=== PATIENT | male | born 1950 | race Two or more races ===

== ENCOUNTER → 2017-09-19 | Outpatient (CLI) | payer MEDICARE, BC ==
--- NOTE | 2017-09-20 16:00 | MR ---
EXAMINATION TYPE: MR knee LT wo con DATE OF EXAM: 09/19/2017 COMPARISON: NONE HISTORY: Left knee pain and swelling. Prior arthroscopy in 2000. TECHNIQUE: Multiplanar, multisequence imaging of the left knee is performed without IV contrast. FINDINGS: MEDIAL MENISCUS: Anterior and posterior horns are intact without tear. LATERAL MENISCUS: Anterior and posterior horns are intact without tear. Minimal increased signal is s een within the posterior horn of the lateral meniscus without meniscal tear compatible with myxoid de generation. CRUCIATE LIGAMENTS: The anterior and posterior cruciate ligaments are intact and unremarkable. COLLATERAL LIGAMENTS: The medial collateral ligament and lateral collateral ligament complex are inta ct and unremarkable. EXTENSOR MECHANISM: Visualized quadriceps and patellar tendons are intact. EFFUSION: There is a moderate complex joint effusion. Specifically within the anterior patellofemora l joint space extending into the medial and lateral compartments there are numerous rounded and ovoid signal abnormalities. The majority of these are subcentimeter and both T1 and T2 hyperintense compat ible with either synovial osteochondromatosis or pigmented villous nodular synovitis. However, the la rger of these is of mixed signal measuring approximately 2.2 x 1.4 cm and appears to have some chondr oid component although is not entirely T1 hypointense suggesting intra-articular extra synovial osteo chondroma. Given the multiplicity these are likely benign. POPLITEAL CYST: No popliteal/wood cyst. CARTILAGE: There is mild signal heterogeneity of the patellofemoral cartilage with lateral facet thin chantelle and no focal cortical defect with 1 mm focal cortical defect of the medial facet. Signal heterog eneity without focal cortical defect is seen of the lateral compartment. Medial compartment cartilage appears maintained. BONE MARROW SIGNAL: There is a focal area of bone marrow edema within the medial patellar facet. Cart ilage deep to this appears unremarkable. There is also thickening of the medial patellar retinaculum although it appears intact. Additionally PD hyperintense and T1 hypointense osseous contusion is also seen of the posterior medial femoral condyle. Superficial cartilage appears intact at this location. Remaining bone marrow signal is unremarkable. IMPRESSION: 1. 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 The largest of these is complex in signal favoring intra-articular extra synovial osteochondroma. 2. Focal area of bone marrow edema within the medial facet and retinacular thickening relating to low -grade partial tear. No patellar subluxation or retinacular detachment. 3. Additional area of bone marrow edema within the medial femoral condyle likely relating to osseous contusion is a superficial cartilage appears intact. 4. Mild to moderate tricompartmental chondrosis. 5. Myxoid degeneration of the posterior horn of the lateral meniscus. No meniscal tear.
== END | disposition home or self-care (01) ==
LOC: RADMRIMAIN 13:34
PROVIDERS: ATTEND Orthopaedic Surgery
DX: M23.352 Other meniscus derangements, posterior horn of lateral meniscus, left knee (principal); M25.462 Effusion, left knee; R60.0 Localized edema

== ENCOUNTER → 2018-02-05 | Outpatient (CLI) | payer MEDICARE, BC ==
--- NOTE | 2018-02-05 13:50 | XR ---
EXAMINATION TYPE: XR chest 2V DATE OF EXAM: 02/05/2018 COMPARISON: 11/19/2014 HISTORY: Shortness of breath TECHNIQUE: Frontal and lateral views of the chest are obtained. FINDINGS: Scattered senescent parenchymal changes noted. No evidence for infiltrate. No evidence for atelectasis. Heart size is stable. Mediastinal structures are stable and grossly unremarkable. No evidence for hilar prominence. Degenerative changes dorsal spine. IMPRESSION: 1. No evidence for acute pulmonary disease.
== END | disposition home or self-care (01) ==
LOC: RADXRMAIN 13:35
PROVIDERS: ATTEND Internal Medicine
DX: R05 Cough (principal)
CPT/HCPCS: 71046

== ENCOUNTER → 2018-06-19 | Outpatient (CLI) | payer MEDICARE, BC ==
--- NOTE | 2018-06-20 07:42 | XR ---
Lumbar spine HISTORY: Trauma and pain 3 views of the lumbar spine Correlation to prior thoracic spine 06/19/2018 There is multilevel spondylosis. Lumbar vertebral bodies show preserved height and alignment. Mild lo ss of bone mineralization suspected. Sclerosis present in the posterior elements of the lower lumbar spine. Disc heights are maintained. IMPRESSION: No acute fracture or subluxation. Consider MRI for additional evaluation, persistent symp toms.
--- NOTE | 2018-06-20 07:44 | XR ---
Thoracic spine HISTORY: Trauma and pain 3 views of the thoracic spine Flowing anterior osteophytes present along the anterior thoracic spine with relative preservation of disc heights suggest diffuse idiopathic skeletal hyperostosis. Thoracic vertebral bodies show preserv ed height and alignment. Mild spinal curvature noted. IMPRESSION: No acute fracture or subluxation.
== END | disposition home or self-care (01) ==
LOC: RADXRMAIN 16:23
PROVIDERS: ATTEND Internal Medicine
DX: M54.5 Low back pain (principal)
CPT/HCPCS: 72072; 72100

== ENCOUNTER → 2018-07-24 | Outpatient (CLI) | payer MEDICARE, BC ==
--- NOTE | 2018-07-24 17:58 | US ---
EXAMINATION TYPE: US kidneys/renal and bladder DATE OF EXAM: 07/24/2018 COMPARISON: US dated 10/24/2012, CT chest 11/19/2014 CLINICAL HISTORY: R10.9 Right flank pain x 2 weeks; Microscopic hematuria per patient EXAM MEASUREMENTS: Right Kidney: 11.5 x 5.8 x 4.6 cm Left Kidney: 11.5 x 5.9 x 5.6 cm Post Void Residual Volume: 18.9 mL Right Kidney: double collecting system is noted Left Kidney: superior pole cortical cyst = 3.2 x 3.1 x 3.6cm is limitedly noted due to rib interfere nce, but is seen on multiple views Bladder: wnl Bilateral Jets seen: yes Normal Post Void Residual: yes There is no evidence for hydronephrosis at this point in time. No nephrolithiasis is seen. Cortical medullary differentiation is maintained. The urinary bladder is anechoic. Bilateral ureteral jets ar e seen. IMPRESSION: Upper pole cortical cyst is not well seen left kidney due to position.
== END ==
LOC: RADUSWWP 13:23
PROVIDERS: ATTEND Internal Medicine
DX: N28.1 Cyst of kidney, acquired (principal); R10.9 Unspecified abdominal pain
CPT/HCPCS: 76770

== ENCOUNTER 2018-10-27 12:50 | Emergency (ER) | payer MEDICARE, BC ==
[2018-10-27 13:00] VITALS: BP 190/66; PULSE 76; RESP 20; TEMP 98.1
[2018-10-27] MEDS ORDERED: ACET/COD 300 MG/30 MG STARTER PACK 6 TAB BTL PO STA (14:40)
[2018-10-27] MEDS ORDERED: IBUPROFEN 800 MG TAB PO STA (14:40)
[2018-10-27] MEDS ORDERED: Acetaminophen-Codeine 300-30mg TAB PO STA (14:40)
--- NOTE | 2018-10-27 14:42 | ED ---
Extremity Problem HPI - General Chief complaint: Extremity Problem,Nontraumatic Stated complaint: Left Shoulder/Arm Pain moving into neck Time Seen by Provider: 10/27/18 13:43 Source: patient, RN notes reviewed, old records reviewed Mode of arrival: ambulatory Limitations: no limitations - History of Present Illness Initial comments: This is a 67-year-old male who is presenting to the ER today for evaluation of left arm left shoulder pain. Patient denies any significant acute injury. He states 3 days ago he had symptoms of planar left shoulder and then noticed that started a ball around his elbow joint. Mainly in the biceps area he does feel some weakness in strength in that arm. No other injuries no other trauma no other complaints. MD Complaint: extremity pain (Left upper) -: days(s) (3) Location: left, upper extremity History of Same: No Radiation: none Severity scale (1-10): 3 Quality: aching Consistency: constant Improves with: immobilization Worsens with: exertion, palpation Associated Symptoms: denies other symptoms - Related Data Home Medications Medication Instructions Recorded Confirmed Insulin Glargine [Lantus] 25 units SQ HS 11/19/14 10/27/18 Aspirin [Adult Low Dose Aspirin EC] 81 mg PO DAILY 10/27/18 10/27/18 Losartan Potassium 100 mg PO DAILY 10/27/18 10/27/18 glipiZIDE [Glucotrol] 10 mg PO TID 10/27/18 10/27/18 metFORMIN HCL 500 mg PO BID 10/27/18 10/27/18 Previous Rx's Medication Instructions Recorded Rosuvastatin [Crestor] 20 mg PO DAILY #30 tablet 11/19/14 Naproxen [Naprosyn] 375 mg PO Q12HR #30 tablet 10/27/18 Allergies Allergy/AdvReac Type Severity Reaction Status Date / Time Penicillins Allergy Rash/Hives Verified 10/27/18 14:15 Review of Systems ROS Statement: Those systems with pertinent positive or pertinent negative responses have been documented in the HPI. ROS Other: All systems not noted in ROS Statement are negative. Past Medical History Past Medical History: Diabetes Mellitus, Hyperlipidemia History of Any Multi-Drug Resistant Organisms: None Reported Past Surgical History: Ear Surgery, Heart Catheterization Additional Past Surgical History / Comment(s): stress test Past Anesthesia/Blood Transfusion Reactions: No Reported Reaction Past Psychological History: Depression, No Psychological Hx Reported Smoking Status: Current every day smoker Past Alcohol Use History: Occasional Past Drug Use History: Unable to Obtain - Past Family History Father Family Medical History: Coronary Artery Disease (CAD), Dementia Mother Family Medical History: Coronary Artery Disease (CAD), Diabetes Mellitus General Exam - General Exam Comments Initial Comments: She does have deformity left upper arm, does appear to have Complete biceps tendon rupture Limitations: no limitations General appearance: alert, in no apparent distress Head exam: Present: atraumatic, normocephalic, normal inspection Eye exam: Present: normal appearance, PERRL, EOMI. Absent: scleral icterus, conjunctival injection, periorbital swelling ENT exam: Present: normal exam, mucous membranes moist Neck exam: Present: normal inspection. Absent: tenderness, meningismus, lymphadenopathy Respiratory exam: Present: normal lung sounds bilaterally. Absent: respiratory distress, wheezes, rales, rhonchi, stridor Cardiovascular Exam: Present: regular rate, normal rhythm, normal heart sounds. Absent: systolic murmur, diastolic murmur, rubs, gallop, clicks GI/Abdominal exam: Present: soft, normal bowel sounds. Absent: distended, tenderness, guarding, rebound, rigid Extremities exam: Present: normal inspection, full ROM, normal capillary refill. Absent: tenderness, pedal edema, joint swelling, calf tenderness Back exam: Present: normal inspection Neurological exam: Present: alert, oriented X3, CN II-XII intact Psychiatric exam: Present: normal affect, normal mood Skin exam: Present: warm, dry, intact, normal color. Absent: rash Course Vital Signs 10/27/18 12:57 Temperature 98.1 F Pulse Rate 76 Respiratory 20 Rate Blood Pressure 190/66 O2 Sat by Pulse 98 Oximetry Medical Decision Making - Medical Decision Making 67 male the ER for evaluation presents today for evaluation regards to left shoulder pain, positive left biceps tendon rupture on exam. Patient will follow -up with orthopedics as directed - Radiology Data Radiology results: report reviewed (X-ray left shoulder is negative for acute disease), image reviewed Disposition Clinical Impression: Rupture of left biceps tendon Disposition: HOME SELF-CARE Condition: Good Instructions: Repairs of the Biceps and Triceps Tendons (DC), Tendon Rupture ( ED), Biceps Tenodesis (DC) Prescriptions: Naproxen [Naprosyn] 375 mg PO Q12HR #30 tablet Is patient prescribed a controlled substance at d/c from ED?: No Referrals: Miguel Dietz DO [Doctor of Osteopathic Medicine] - 1-2 days
--- NOTE | 2018-10-27 15:11 | XR ---
EXAMINATION TYPE: XR shoulder complete LT DATE OF EXAM: 10/27/2018 COMPARISON: NONE HISTORY: Shoulder pain TECHNIQUE: 3 views FINDINGS: I see no fracture nor dislocation. Glenohumeral joint is intact. There are no pathologic ca lcifications. IMPRESSION: Negative left shoulder exam. No fracture seen.
== END 2018-10-27 15:15 | disposition home or self-care (01) ==
LOC: EC 12:50
DX: M66.812 Spontaneous rupture of other tendons, left shoulder (principal); E11.9 Type 2 diabetes mellitus without complications; F17.200 Nicotine dependence, unspecified, uncomplicated; Z95.818 Presence of other cardiac implants and grafts; Z79.4 Long term (current) use of insulin; Z79.82 Long term (current) use of aspirin; Z79.899 Other long term (current) drug therapy; Z88.0 Allergy status to penicillin
CPT/HCPCS: 99284

== ENCOUNTER → 2018-11-15 | Outpatient (CLI) | payer MEDICARE, BC ==
--- NOTE | 2018-11-15 08:19 | MR ---
EXAMINATION TYPE: MR shoulder LT wo con DATE OF EXAM: 11/15/2018 COMPARISON: Left shoulder x-ray October 27, 2018 HISTORY: Pain in left shoulder per order TECHNIQUE: Multiplanar, multisequence imaging of the left shoulder is performed without contrast. FINDINGS: Rotator Cuff: There is marked increased signal of the distal supraspinatus tendon, there is bursal mendiola rface tear measuring 10 mm transversely paracoronal image 11. Tear involves anterior one half fibers. Infraspinatus tendon remains intact. There is moderate to severe focal bursal fluid extending latera lly and anteriorly noted. Acromioclavicular Joint: Moderate to severe narrowing is seen. There is type II downsloping acromion noted. Glenohumeral Joint: Moderate narrowing and glenohumeral joint effusion is seen. No significant spurri ng is present. Labrum: The superior labrum is blunted with abnormal signal, degenerative tear is felt present. Biceps Tendon: The long head of biceps is not distinctly identified in bicipital groove, external rot ation is present. Bone marrow signal: Subchondral cystic change in the humeral head is identified. Other: No additional significant abnormality is appreciated. IMPRESSION: There is moderate AC and glenohumeral joint arthropathy. Type II downsloping acromion wit h suggestion of underlying impingement. There is bursal surface tear of the anterior portion of supra spinatus tendon.
== END | disposition home or self-care (01) ==
LOC: RADMRIMAIN 06:07
PROVIDERS: ATTEND Orthopaedic Surgery
DX: M75.102 Unspecified rotator cuff tear or rupture of left shoulder, not specified as traumatic (principal); M19.012 Primary osteoarthritis, left shoulder

== ENCOUNTER 2018-11-21 06:43 | Day surgery (SDC) | payer MEDICARE, BC ==
[2018-11-19 08:51] VITALS: BMI 28.6
[~2018-11-21 06:43] MED LIST: LACTATED RINGERS 1,000 ML IV SCH
[2018-11-21 07:19] VITALS: RESP 16; TEMP 96.5
[2018-11-21 07:22] LABS: Glucose,Whole Blood 124 mg/dL (75-99)
[2018-11-21] MEDS ORDERED: PROPOFOL 10 MG/ML 20 ML VIAL IV ONE (07:30)
--- NOTE | 2018-11-21 07:57 | P.PCN ---
Date of Procedure: 11/21/18 Procedure(s) Performed: BRIEF HISTORY: Patient is a 67-year-old pleasant male, scheduled for an elective colonoscopy as a part of variation of prior history of colon polyps. His last colonoscopy was 5 years ago. PROCEDURE PERFORMED: Colonoscopy. PREOPERATIVE DIAGNOSIS: History of colon polyps. IV sedation per Anesthesia. PROCEDURE: After informed consent was obtained, the patient, was brought into the endoscopy unit. IV sedation was administered by Anesthesia under continuous monitoring. Digital rectal examination was normal. Initially the Olympus CF- 160 flexible video colonoscope was then inserted in the rectum, gradually advanced into the cecum without any difficulty. Careful examination was performed as the scope was gradually being withdrawn. Ileocecal valve and the appendiceal orifice were visualized and appeared normal. Prep was excellent. Mucosa of the cecum, ascending colon, transverse colon, descending colon, sigmoid colon, and rectum appeared normal. Retroflexion was performed in the rectum and grade 2 internal hemorrhoids were seen. The patient tolerated the procedure well. IMPRESSION: Normal-appearing colon from rectum to cecum with no evidence of colorectal neoplasia. Grade 2 internal hemorrhoids. RECOMMENDATIONS: Findings of this examination were discussed with the patient as well as his family. He was advised to have a repeat surveillance colonoscopy in 5 years from now because of the prior history of polyps.
[2018-11-21 08:26] VITALS: BP 144/72; PULSE 51
== END 2018-11-21 09:02 | disposition home or self-care (01) ==
LOC: ORWHC2ENDO 06:43
PROVIDERS: ATTEND Internal Medicine Gastroenterology
DX: Z12.11 Encounter for screening for malignant neoplasm of colon (principal); K64.1 Second degree hemorrhoids; E11.9 Type 2 diabetes mellitus without complications; E78.5 Hyperlipidemia, unspecified; Z86.010 Personal history of colon polyps; Z88.0 Allergy status to penicillin; Z79.82 Long term (current) use of aspirin; Z79.84 Long term (current) use of oral hypoglycemic drugs; Z79.899 Other long term (current) drug therapy
CPT/HCPCS: J2704; G0105; 45378

== ENCOUNTER 2018-12-19 06:28 | Day surgery (SDC) | payer MEDICARE, BC ==
[2018-12-17 08:43] VITALS: BMI 28.8
--- NOTE | 2018-12-18 14:28 | HP ---
HISTORY AND PHYSICAL DATE OF SERVICE: 12/19/2018 Miah Alcala is a 68-year-old patient seen with progressive left shoulder pain. Treatment options were discussed with him. He elected to proceed with arthroscopy. Consent was obtained, clearance was provided by Dr. Mcdaniels. PAST MEDICAL HISTORY: Hypertension, insulin-dependent diabetes. PAST SURGICAL HISTORY: Noncontributory. MEDICATIONS: 1. Aspirin. 2. Lantus insulin. 3. Glucotrol. 4. Lisinopril. ALLERGIES: PENICILLIN. SOCIAL HISTORY: Noncontributory. PHYSICAL EVALUATION OF THE LEFT SHOULDER: Flexion is 140 degrees, abduction is 130 degrees, external rotation is 30 degrees with weakness, tenderness along the anterolateral acromion rotator cuff insertion site. Impingement sign is positive at 90 degrees. Distal neurovascular exam is intact. RADIOGRAPHS OF THE LEFT SHOULDER: Revealed a type 2 anterior acromion, acromioclavicular joint osteoarthritis and cystic changes of the greater tuberosity of the left shoulder. MRI revealed a rotator cuff tear, impingement, and acromioclavicular joint osteoarthritis. IMPRESSION: 1. Left shoulder impingement with rotator cuff tear. 2. Left shoulder acromioclavicular osteoarthritis. 3. Hypertension. 4. Insulin-dependent diabetes. PLAN: Left shoulder arthroscopy with decompression, possible rotator cuff repair, Sujit and debridement. MMODL / IJN: [id number] /
[~2018-12-19 06:28] MED LIST changes: +DEXAMETHASONE SOD PHOSPHATE 10 MG/ML 1 ML VIAL IV ONE; -LACTATED RINGERS 1,000 ML IV SCH; +LIDOCAINE 1% 20 ML VIAL (10MG/ML) FOR IV START INTRADERMA PRN; +MIDAZOLAM (PF) 2 MG/2 ML VIAL IV PRN; +fentaNYL (PF) 50 MCG/ML 2 ML AMP IV PRN
[2018-12-19 07:04] VITALS: TEMP 97
[2018-12-19] MEDS: LACTATED RINGERS 1,000 ML IV SCH ×3 (07:12→12:40)
[2018-12-19 07:24] LABS: Glucose,Whole Blood 97 mg/dL (75-99)
[2018-12-19] MEDS: ceFAZolin IN SWFI 2 GM/20 ML SYRINGE IVP ONE ×2 (07:49→08:20)
[2018-12-19] MEDS ORDERED: NEOSTIGMINE 1 MG/ML 10 ML VIAL ONE (07:55)
[2018-12-19] MEDS ORDERED: TRANEXAMIC ACID 1,000 MG/10 ML VIAL ONE (07:55)
[2018-12-19] MEDS ORDERED: SUCCINYLCHOLINE CHLORIDE 100 MG/5 ML SYR IV ONE ×2 (07:55)
[2018-12-19] MEDS ORDERED: GLYCOPYRROLATE 0.2 MG/ML 2 ML VIAL ONE (07:55)
[2018-12-19] MEDS ORDERED: ROCURONIUM BROMIDE 10 MG/ML 10 ML VIAL IV ONE (07:55)
[2018-12-19] MEDS ORDERED: PROPOFOL 10 MG/ML 20 ML VIAL IV ONE (07:55)
[2018-12-19] MEDS ORDERED: LIDOCAINE 1% INJ 10MG/ML (20 ML MDV) ONE (07:55)
[2018-12-19] MEDS ORDERED: SODIUM CHLORIDE 0.9% 100 ML BAG ONE (07:55)
[2018-12-19] MEDS ORDERED: MIDAZOLAM 2 MG/2 ML VIAL ONE (07:55)
--- NOTE | 2018-12-19 09:59 | P.OP ---
Date of Procedure: 12/19/18 Preoperative Diagnosis: Left shoulder impingement Postoperative Diagnosis: 1. Left shoulder rotator cuff tear 2. Left shoulder impingement 3. Left shoulder acromioclavicular joint osteoarthritis Procedure(s) Performed: 1. Left shoulder arthroscopic rotator cuff repair 2. Left shoulder arthroscopic subacromial decompression 3. Left shoulder arthroscopic Sujit procedure Implants: 44.75 Arthrex swivel lock anchors Anesthesia: GETA, regional (Interscalene block) Surgeon: Miguel Dietz Student Ambassador #1: Chuy Roth Estimated Blood Loss (ml): 10 Pathology: none sent Condition: stable Disposition: PACU Indications for Procedure: 68-year-old patient seen with progressive left shoulder pain. After having treatment options discussed, he elected to proceed with arthroscopy. Operative Findings: see description of procedure Description of Procedure: Patient underwent an interscalene block by department of anesthesia. The patient was then taken to the operative suite. The patient underwent a general anesthetic by the department of anesthesia. The patient was placed into a lateral position and secured. There was appropriate padding of the bony prominence. Left shoulder was then prepped and draped in normal sterile orthopedic fashion. We placed the extremity in 10 pounds of longitudinal traction. A posterior incision was now made for a posterior working portal site. The trocar and cannula were inserted into the glenohumeral joint. Arthroscopy was initiated. Spinal needle was now inserted anteriorly, to ascertain the anterior working portal site. An incision was now made in that area, a trocar was inserted followed by a probe. There was no obvious long head biceps tendon tear with remnant stump intra-articular. There was some mild fraying of the anterior labrum. There were grade 1 chondromalacia changes of the glenoid. There was an obvious large rotator cuff tear that was visualized from the glenohumeral side. I debrided the remnant biceps stump. I debrided that superficial labral tear. The residual labrum appeared stable. Instruments now removed from the glenohumeral joint. Utilizing the posterior working portal site, the trocar and cannula were inserted into the subacromial space. Arthroscopy initiated. I made an incision 2 fingerbreadths lateral to the acromion. I introduced my trocar followed by my ArthroCare ablator. I now began ablating thick subacromial bursal tissue, which exposed the undersurface of the anterior acromion. There was diminished subacromial space. There was a very prominent anterior acromion. A motorized bur was introduced and a subacromial decompression was performed. I also excised some osteophytes off the inferior aspect of the distal clavicle. The AC joint was visualized and noted to be fairly arthritic. The motorized bur was introduced in the anterior portal site and a Sujit procedure was performed without difficulty, decompressing the AC joint nicely. I turned my attention to the rotator cuff. There was a 2.5 cm rotator cuff tear. I debrided the margins getting down to stable tendon tissue. I introduced my motorized bur and abraded the footprint area, getting some petechial bleeding. I now made an accessory portal site off the lateral aspect of the acromion. I punched to holes medial for medial row fixation with the assistance of Jovani HAMILTON carefully tapping the punch with a mallet as I held the punch and the camera. I now introduced both anchors into the pre-punched holes and Jovani HAMILTON tapped them with the mallet as I held anchors and the camera. Jovani HAMILTON now screwed the anchors in place a while I held the anchor guide and camera. All 8 limbs of suture were now passed through good bites of rotator cuff tendon. I now punched 2 holes for lateral row fixation again I held the punch and camera while Jovani HAMILTON used a mallet to tap in the punch. We now passed sutures through both anchors and individually I introduced the anchors into the pre-punch holes I held the anchor guide in position with one hand holding the camera with the other hand while Jovani HAMILTON tensioned the sutures and screwed in the anchors one at a time. All residual suture limbs were now clipped. We had good compression of the tendon along the entire footprint. I injected 1 mL Renue intra-articular. Instruments now removed from the portal sites. All portal sites were approximated with nylon suture. Sterile dressings were applied followed by a shoulder immobilizer. Chuy HAMILTON assisted in this complex case. The patient was awakened, transferred to a bed, and taken to recovery in stable condition.
[2018-12-19 12:14] VITALS: BP 130/77; PULSE 50; RESP 16
--- NOTE | 2018-12-26 15:21 | CDI ---
Date: 12/26/18 CDS/Account Director Name: Argentina Lopez Phone: If any questions, call Vilma Bergman Assembly Line Driver at [phone] Patient Name: Miah Alcala Admit Date: 12/19/18 Discharge Date: 12/19/18 ATTENTION: The [facility] Coding Staff appreciate your assistance in clarifying documentation. Please respond to the clarification below the line at the bottom and electronically sign. The [facility] Coding staff will review the response and follow-up if needed. Please note: Queries are made part of the Legal Health Record. If you have any questions, please contact the Assembly Line Driver. Dear Dr. Dietz, Please provide clarification as to why the interscalene block was performed. Please clarify if this was given for postoperative pain or if it was part of the anesthesia for operative purposes. Thank you for your kind consideration. MTDD
--- NOTE | 2018-12-31 10:01 | CDI ---
Date: 12/31/18 CDS/Heel Seat Fitter Name: Argentina Lopez Phone: If any questions, call Vilma Bergman Field Technical Assistant at [phone] Patient Name: Miah Alcala Admit Date: 12/19/18 Discharge Date: 12/19/18 ATTENTION: The [facility] Coding Staff appreciate your assistance in clarifying documentation. Please respond to the clarification below the line at the bottom and electronically sign. The [facility] Coding staff will review the response and follow-up if needed. Please note: Queries are made part of the Legal Health Record. If you have any questions, please contact the Field Technical Assistant. Dear Dr. Dietz, Please provide clarification as to why the interscalene block was performed. Please clarify if this was given for postoperative pain management or if it was part of the operative anesthesia. Thank you for your kind consideration. postoperative pain control _ MTDD
== END 2018-12-19 12:41 | disposition home or self-care (01) ==
LOC: OR 06:28
PROVIDERS: ATTEND Orthopaedic Surgery
DX: M75.102 Unspecified rotator cuff tear or rupture of left shoulder, not specified as traumatic (principal); M75.42 Impingement syndrome of left shoulder; M19.012 Primary osteoarthritis, left shoulder; M94.212 Chondromalacia, left shoulder; I10 Essential (primary) hypertension; E11.9 Type 2 diabetes mellitus without complications; F17.200 Nicotine dependence, unspecified, uncomplicated; Z79.1 Long term (current) use of non-steroidal anti-inflammatories (NSAID); Z79.82 Long term (current) use of aspirin; Z79.4 Long term (current) use of insulin; Z79.899 Other long term (current) drug therapy; Z88.0 Allergy status to penicillin
CPT/HCPCS: 29826; 29827; 29824; 64415; C1713 ×2; C1894; C1765; J2250 ×2; J1100; J2710; J2001; J3010; J0330; J2704; J0690

== ENCOUNTER → 2020-05-22 | Outpatient (CLI) | payer MEDICARE, BC ==
--- NOTE | 2020-05-22 09:42 | US ---
EXAMINATION TYPE: US kidneys/renal and bladder DATE OF EXAM: 05/22/2020 COMPARISON: NONE CLINICAL HISTORY: 69-year-old male R10.9 FLANK PAIN. TECHNIQUE: Multiple sonographic images of the kidneys and bladder are obtained. FINDINGS: EXAM MEASUREMENTS: Right Kidney: 11.0 x 4.8 x 4.5 cm Left Kidney: 11.6 x 5.6 x 5.7 cm with a 5.4 cm upper pole cyst. No hydronephrosis in either side. Bladder: Partial distention limits its evaluation. Bilateral Jets seen: no IMPRESSION: No hydronephrosis. 5.4 cm left upper pole renal cyst.
== END | disposition home or self-care (01) ==
LOC: RADUSWWP 06:53
PROVIDERS: ATTEND Internal Medicine
DX: N28.1 Cyst of kidney, acquired (principal)
CPT/HCPCS: 76770

== ENCOUNTER 2021-03-31 03:23 | Emergency (ER) | payer MEDICARE, BC ==
[2021-03-31 03:41] VITALS: BP 163/75; PULSE 66; RESP 19; TEMP 97.4
[2021-03-31] MEDS ORDERED: HYDROmorphone 1 MG/ML 1 ML SYRINGE IM STA (03:51)
[2021-03-31] MEDS ORDERED: diazePAM 5 MG TAB PO STA (03:51)
[2021-03-31] MEDS ORDERED: IBUPROFEN 800 MG TAB PO STA (03:51)
--- NOTE | 2021-03-31 03:54 | ED ---
Extremity Problem HPI - General Chief complaint: Extremity Problem,Nontraumatic Stated complaint: Foot Pain Time Seen by Provider: 03/31/21 03:24 Source: patient Mode of arrival: ambulatory - Related Data Home Medications Medication Instructions Recorded Confirmed Insulin Glargine [Lantus] 25 units SQ HS 11/19/14 12/19/18 Aspirin [Adult Low Dose Aspirin EC] 81 mg PO Q48H 10/27/18 12/19/18 Losartan Potassium 100 mg PO DAILY 10/27/18 12/19/18 glipiZIDE [Glucotrol] 10 mg PO DAILY 10/27/18 12/19/18 metFORMIN HCL 500 mg PO BID 10/27/18 12/19/18 Ibuprofen [Motrin] 600 mg PO Q8HR PRN 12/17/18 12/19/18 Previous Rx's Medication Instructions Recorded Rosuvastatin [Crestor] 20 mg PO DAILY #30 tablet 11/19/14 Hydrocodone/Acetaminophen [[place] 1 each PO Q6HR PRN #28 tab 12/19/18 5-325] Allergies Allergy/AdvReac Type Severity Reaction Status Date / Time Penicillins Allergy Rash/Hives Verified 03/31/21 03:41 Review of Systems ROS Statement: Those systems with pertinent positive or pertinent negative responses have been documented in the HPI. ROS Other: All systems not noted in ROS Statement are negative. Past Medical History Past Medical History: Diabetes Mellitus, Hyperlipidemia Additional Past Medical History / Comment(s): STATES LOSARTAN TAKEN FOR KIDNEY PROTECTION., CONSTIPATION. History of Any Multi-Drug Resistant Organisms: None Reported Past Surgical History: Ear Surgery, Heart Catheterization Additional Past Surgical History / Comment(s): stress test Past Anesthesia/Blood Transfusion Reactions: No Reported Reaction Past Psychological History: No Psychological Hx Reported Smoking Status: Current every day smoker Past Alcohol Use History: Occasional Past Drug Use History: None Reported - Past Family History Sister(s) Family Medical History: Cancer Additional Family Medical History / Comment(s): BREAST CANCER. BRAIN TUMOR Father Family Medical History: Coronary Artery Disease (CAD), Dementia Mother Family Medical History: Coronary Artery Disease (CAD), Diabetes Mellitus Course Vital Signs 03/31/21 03:34 Temperature 97.4 F L Pulse Rate 66 Respiratory 19 Rate Blood Pressure 163/75 O2 Sat by Pulse 99 Oximetry Disposition Clinical Impression: Right knee pain Disposition: HOME SELF-CARE Condition: Good Instructions (If sedation given, give patient instructions): Knee Pain (ED) Is patient prescribed a controlled substance at d/c from ED?: No Referrals: Elliott Mcdaniels MD [Primary Care Provider] - 1-2 days Miguel Dietz DO [Doctor of Osteopathic Medicine] - 1-2 days
--- NOTE | 2021-03-31 04:32 | XR ---
EXAM: XR Right Knee, 3 Views CLINICAL HISTORY: ITS.REASON XR Reason: pain TECHNIQUE: Three views of the right knee. COMPARISON: No relevant prior studies available. FINDINGS: Bones/joints: No acute fracture or traumatic malalignment. Mild degenerative changes. Tiny joint effusion. Soft tissues: Unremarkable. Vasculature: Vascular calcifications. IMPRESSION: No acute fracture or traumatic malalignment.
[2021-03-31] MEDS ORDERED: ACET/COD 300 MG/30 MG STARTER PACK 6 TAB BTL PO STA (05:19)
[2021-03-31] MEDS ORDERED: IBUPROFEN 600 MG STARTER PACK 4 TAB BTL PO STA (05:20)
== END 2021-03-31 06:49 | disposition home or self-care (01) ==
LOC: EC 03:23
DX: M25.561 Pain in right knee (principal); M79.673 Pain in unspecified foot; E11.9 Type 2 diabetes mellitus without complications; F17.200 Nicotine dependence, unspecified, uncomplicated; E78.5 Hyperlipidemia, unspecified; Z79.4 Long term (current) use of insulin; Z79.82 Long term (current) use of aspirin; Z88.0 Allergy status to penicillin
CPT/HCPCS: 96372; 99283

== ENCOUNTER → 2021-04-06 | Outpatient (CLI) | payer MEDICARE, BC ==
--- NOTE | 2021-04-06 17:03 | MR ---
EXAMINATION TYPE: MR knee RT wo con DATE OF EXAM: 04/06/2021 COMPARISON: Radiograph 6-21 HISTORY: 70-year-old male Right knee pain x 4 days. No known injury TECHNIQUE: Multiplanar, multisequence imaging of the right knee is performed without IV contrast. FINDINGS: There is some increased signal along the intact ACL fibers, possible mild mucoid degeneration. ACL and LCL complex are intact. Mild thickening of the proximal to mid MCL suggesting sequela of remote sprain. Fibers are intact. Some degenerative signal involving the body of the medial meniscus. No definite meniscal tear. Extensive degenerative signal, possible early horizontal cleavage tear involving the body of the late ral meniscus. Mild focal cartilage thinning along the mid central aspect of the medial femoral condyle. Minimal sup erficial cartilage irregularity along the mid weightbearing aspect of the lateral femoral condyle. Mi ld diffuse thinning of articular cartilage without any high-grade chondral lesion within either media l or lateral compartment. However, there is more severe cartilage loss involving the medial patellar facet and moderate to obi re irregular loss along the mid patella with reactive degenerative subchondral signal changes. Extensor mechanism is intact. Nonspecific anterior soft tissue swelling. Mild edema within the suprap atellar fat pad. Small to moderate knee joint effusion. Some generalized soft tissue swelling is note d. Mild edema within the lateral gastrocnemius musculature. No Doran's cyst. Normal popliteal artery anatomy and muscle bulk. No suspicious bone marrow replacement. Small foci of red marrow hyperplasia are present. IMPRESSION: 1. Prominent degenerative signal, possible early horizontal cleavage tear involving the body of the l ateral meniscus. Lesser degree of degenerative signal in the body of the medial meniscus. 2. Moderate to severe irregular cartilage loss along the mid patella and medial patellar facet with s ome reactive subchondral signal changes. Lateral patellar facet and trochlear articular cartilage is uniformly thinned but otherwise maintained. 3. Some edema within the suprapatellar fat pad may be seen in the setting of fat pad impingement synd orion. Clinically correlate. Anterior soft tissue swelling with a small knee joint effusion. 4. Some mild generalized soft tissue swelling. Edema within the lateral gastrocnemius could be reacti ve to altered biomechanics or could reflect a mild muscle strain.
== END | disposition home or self-care (01) ==
LOC: RADMRIMAIN 14:05
PROVIDERS: ATTEND Orthopaedic Surgery
DX: M25.861 Other specified joint disorders, right knee (principal); M24.151 Other articular cartilage disorders, right hip; R60.0 Localized edema

== ENCOUNTER 2021-06-17 08:06 | Day surgery (SDC) | payer MEDICARE, BC ==
[2021-06-14 15:13] VITALS: BMI 28.0
--- NOTE | 2021-06-16 21:14 | HP ---
HISTORY AND PHYSICAL REASON FOR ADMISSION: Surgery scheduled for 06/17/2021 HISTORY OF PRESENT ILLNESS: Miah Alcala is a 70-year-old gentleman seen with progressive right knee pain. We discussed options for treatment. He elected to proceed with arthroscopy. Consent was obtained. PAST MEDICAL HISTORY: Hypertension, hyperlipidemia, [id number] diabetes. PAST SURGICAL HISTORY: Left shoulder arthroscopy. MEDICATIONS: Glipizide, losartan, metformin. ALLERGIES: PENICILLIN. SOCIAL HISTORY: Denies tobacco use. PHYSICAL EXAMINATION: Evaluation of the right knee: Range of motion zero to 130. Mild effusion. Tenderness along the medial lateral joint lines. Positive medial Edmund's. Positive lateral Edmund's. Ligaments stable. Hip rotation without pain. Distal neurovascular exam is intact. RADIOGRAPHS: Right knee radiographs revealed mild osteoarthritis. MRI right knee revealed lateral meniscal tear, osteoarthritis, intra-articular effusion. IMPRESSION: 1. Internal derangement of right knee with meniscal tear. 2. Hypertension. 3. Hyperlipidemia. 4. Sne-ennnuiq-mseegikkm diabetes. PLAN: Right knee arthroscopy with partial lateral meniscectomy and debridement. Surgery scheduled for 06/17/2021. MMODL / IJN: [id number] /
[~2021-06-17 08:06] MED LIST changes: -DEXAMETHASONE SOD PHOSPHATE 10 MG/ML 1 ML VIAL IV ONE; +DEXAMETHASONE SOD PHOSPHATE 4 MG/ML 1 ML VIAL IV ONE; +LACTATED RINGERS 1,000 ML IV SCH; -LIDOCAINE 1% 20 ML VIAL (10MG/ML) FOR IV START INTRADERMA PRN; -MIDAZOLAM (PF) 2 MG/2 ML VIAL IV PRN; +MIDAZOLAM 2 MG/2 ML VIAL IV PRN; +ONDANSETRON 4 MG/2 ML VIAL IVP ONE; -fentaNYL (PF) 50 MCG/ML 2 ML AMP IV PRN
[2021-06-17 08:35] VITALS: TEMP 96.8
[2021-06-17 08:44] LABS: Glucose,Whole Blood 89 mg/dL (75-99)
[2021-06-17] MEDS ORDERED: LIDOCAINE 1% (10MG/ML) FOR IV START INTRADERMA ONE (08:44)
[2021-06-17] MEDS ORDERED: LIDOCAINE 1% INJ 10MG/ML (20 ML MDV) ONE (09:48)
[2021-06-17] MEDS ORDERED: SUCCINYLCHOLINE CHLORIDE 100 MG/5 ML SYR IV ONE (09:48)
[2021-06-17] MEDS ORDERED: fentaNYL (PF) 50 MCG/ML 2 ML AMP ONE (09:48)
[2021-06-17] MEDS ORDERED: PROPOFOL 10 MG/ML 20 ML VIAL IV ONE (09:48)
[2021-06-17] MEDS ORDERED: MIDAZOLAM 2 MG/2 ML VIAL ONE (09:48)
[2021-06-17] MEDS ORDERED: BUPIVACAINE (PF) 0.25% 30 ML VIAL SQ ONE (10:17)
--- NOTE | 2021-06-17 10:37 | P.OP ---
Date of Procedure: 06/17/21 Preoperative Diagnosis: Internal derangement right knee Postoperative Diagnosis: 1. Tear medial meniscus right knee 2. Grade 2 chondromalacia medial femoral condyle right knee 3. Reactive synovitis medial, lateral and suprapatellar compartments right knee Procedure(s) Performed: 1. Arthroscopic partial medial meniscectomy right knee 2. Arthroscopic chondroplasty medial femoral condyle right knee 3. Arthroscopic partial synovectomy medial, lateral and suprapatellar compartments right knee Anesthesia: SASKIAA, local Surgeon: Miguel Dietz Estimated Blood Loss (ml): 7 Pathology: none sent Condition: stable Disposition: PACU Indications for Procedure: 70-year-old gentleman seen with progressive right knee pain. After having treatment options discussed, he elected to proceed with arthroscopy. Operative Findings: See description of procedure Description of Procedure: Patient was taken to the operative suite. Patient underwent a general anesthetic by the department of anesthesia. Patient was given preoperative antibiotics. The right lower extremity was placed in a well-padded arthroscopic leg banks. The right leg was prepped and draped in the normal sterile orthopedic fashion. A lateral parapatellar and suprapatellar incision was made. Trochars were inserted. Arthroscopy was initiated. Suprapatellar pouch revealed diffuse thick reactive synovitis. The patellofemoral joint appeared to articulate congruently. There was grade 1 chondromalacia of the patellofemoral joint with no obvious osteochondral tears present. The scope was guided into the medial gutter. No loose bodies or plica were identified. The scope was then guided into the medial compartment. A medial parapatellar incision was made. Trocar inserted followed by probe. There was a radial tear posterior horn medial meniscus. There were grade 2 chondromalacia changes of the medial femoral condyle on its weightbearing surface with some osteochondral flap tears. There was some thick reactive synovitis anteriorly. I performed a partial medial meniscectomy getting down to stable meniscal tissue. I performed a chondroplasty of the medial femoral condyle getting down to stable osteochondral tissue. I performed a partial synovectomy compressing the thick reactive synovitis. The residual meniscus was stable. The residual osteochondral surface was stable. There was good decompression of the synovitis. Scope and p robe were then guided into the intercondylar notch. Cruciates were identified, probed and found to be stable. The scope and probe were then guided into lateral compartment. Lateral meniscus revealed some mild fraying along the anterior horn. The residual meniscus was stable. There was no significant chondromalacia. There was some thick reactive synovitis anteriorly. I introduced a motorized shaver and debrided out the area of superficial fraying anterior horn lateral meniscus. I performed a partial synovectomy decompressing the thick reactive synovitis. The shaver was removed. There was good decompression of the synovitis. The scope was in guided back into the suprapatellar compartment. I introduced a motorized shaver into the super patellar compartment. I debrided some piecemeal fragments of meniscus that I encountered. I performed a partial synovectomy. Shaver was removed. There was good decompression of the synovitis. Instruments were now removed from the joint. The joint was infiltrated with .25% Marcaine. Steri-Strips were applied to the portal sites. Sterile dressings were applied. The patient was placed into a SONIA hose. No tourniquet was utilized. The patient was awakened, transferred to a bed and taken to recovery stable satisfactory condition.
[2021-06-17] MEDS: HYDROmorphone 0.5 MG/0.5 ML SYRINGE IVP PRN ×2 (10:46→10:56)
[2021-06-17 10:53] LABS: Glucose,Whole Blood 96 mg/dL (75-99)
[2021-06-17 11:20] VITALS: RESP 16
[2021-06-17] MEDS ORDERED: HYDROcodone/APAP 5-325MG 1 EACH TAB ONE (11:26)
[2021-06-17] MEDS ORDERED: HYDROcodone/APAP 5-325MG 1 EACH TAB PO ONE (11:28)
[2021-06-17 11:58] VITALS: BP 156/76; PULSE 65
== END 2021-06-17 12:27 | disposition home or self-care (01) ==
LOC: OR 08:06
PROVIDERS: ATTEND Orthopaedic Surgery
DX: S83.241A Other tear of medial meniscus, current injury, right knee, initial encounter (principal); M94.261 Chondromalacia, right knee; M65.9 Synovitis and tenosynovitis, unspecified; E11.9 Type 2 diabetes mellitus without complications; I10 Essential (primary) hypertension; E78.5 Hyperlipidemia, unspecified; Z79.899 Other long term (current) drug therapy; Z88.0 Allergy status to penicillin
CPT/HCPCS: 29881; 29876; J2250; J1100; J0690; J2405; J2001; J3010; J0330; J2704; J1170

== ENCOUNTER → 2021-06-29 | Outpatient (CLI) | payer MEDICARE, BC ==
--- NOTE | 2021-06-29 14:57 | US ---
EXAMINATION TYPE: US venous doppler duplex LE RT DATE OF EXAM: 06/29/2021 2:37 PM COMPARISON: NONE CLINICAL HISTORY: M79.661 PAIN RT LOWER LIMB,R22.41 SWELLING RT LOWER LIMB. SIDE PERFORMED: Right TECHNIQUE: The lower extremity deep venous system is examined utilizing real time linear array sonog mehdi with graded compression, doppler sonography and color-flow sonography. VESSELS IMAGED: Common Femoral Vein Deep Femoral Vein Greater Saphenous Vein * Femoral Vein Popliteal Vein Small Saphenous Vein * Proximal Calf Veins (* superficial vessels) Right Leg: Negative for DVT IMPRESSION: 1. Right lower extremity ultrasound negative for deep venous thrombosis.
== END | disposition home or self-care (01) ==
LOC: RADUSWWP 14:08
PROVIDERS: ATTEND Orthopaedic Surgery
DX: M79.661 Pain in right lower leg (principal); R22.41 Localized swelling, mass and lump, right lower limb

== ENCOUNTER 2021-07-22 23:32 | Emergency (ER) | payer MEDICARE, BC ==
[2021-07-22 23:41] VITALS: TEMP 98.1
[2021-07-23] MEDS ORDERED: MECLIZINE 12.5 MG TAB PO STA (00:24)
[2021-07-23 00:56] LABS: Basophils % (A) 0 %; Eosinophils # (A) 0.2 k/uL (0-0.7); Eosinophils % (A) 3 %; HCT 41.1 % (39.0-53.0); HGB 13.5 gm/dL (13.0-17.5); Lymphocytes # (A) 2.4 k/uL (1.0-4.8); Lymphocytes % (A) 28 %; MCH 30.8 pg (25.0-35.0); MCHC 32.9 g/dL (31.0-37.0); MCV 93.5 fL (80.0-100.0); Mean Platelet Volume 12.1; Monocytes # (A) 0.4 k/uL (0-1.0); Monocytes % (A) 5 %; Neutrophils # (A) 5.3 k/uL (1.3-7.7); Neutrophils % (A) 62 %; Platelet Count 124 k/uL (150-450); RBC 4.39 m/uL (4.30-5.90); RDW 13.1 % (11.5-15.5); WBC 8.5 k/uL (3.8-10.6)
[2021-07-23 01:05] LABS: Appearance,Urine Clear (Clear); Bilirubin,Urine Negative (Negative); Blood,Urine Negative (Negative); Color,Urine Light Yellow; Glucose,Urine (UA) Negative (Negative); Ketones,Urine Negative (Negative); Leukocyte Esterase,Urine Negative (Negative); Nitrite,Urine Negative (Negative); PH, Urine 6.5 (5.0-8.0); Protein,Urine Negative (Negative); Specific Gravity,Urine 1.014 (1.001-1.035); Urobilinogen,Urine <2.0 mg/dL (<2.0)
[2021-07-23 01:19] LABS: ALT 22 U/L (4-49); AST 22 U/L (17-59); African American GFR (CKD) >90 (>60 ml/min/1.73 sqM); Albumin 4.1 g/dL (3.5-5.0); Alkaline Phosphatase 63 U/L (38-126); Anion Gap 7 mmol/L; Blood Urea Nitrogen 17 mg/dL (9-20); Calcium 9.4 mg/dL (8.4-10.2); Carbon Dioxide 27 mmol/L (22-30); Chloride 103 mmol/L (98-107); Glucose 174 mg/dL (74-99); Non-African American GFR(CKD) 88 (>60 ml/min/1.73 sqM); Sodium 137 mmol/L (137-145); Total Bilirubin 0.4 mg/dL (0.2-1.3); Total Protein 6.7 g/dL (6.3-8.2)
--- NOTE | 2021-07-23 01:23 | ED ---
Dizziness HPI - General Chief Complaint: Dizziness Stated Complaint: Dizziness Time Seen by Provider: 07/23/21 00:02 Source: patient Mode of arrival: ambulatory Limitations: no limitations - History of Present Illness Initial Comments: 70-year-old male presents to emergency Department with chief complaint of dizziness. Patient reports this occurred about 3 hours prior to arrival while he was doing his usual treadmill walk in the basement. Patient reports he felt sudden weakness all over his body and then he felt disoriented. However, he denies any lightheadedness or loss of consciousness. States this is still ongoing but it comes and goes. States it is mostly resolved at this point. States the room was slightly spinning around him. Denies prior history of vertigo. Denies any visual changes, difficulty with speech, one-sided weakness or paresthesias. Patient is a smoker. He is also diabetic with history of dyslipidemia. Denies any chest pain shortness of breath. - Related Data Home Medications Medication Instructions Recorded Confirmed Insulin Glargine [Lantus Vial] 25 units SQ HS 11/19/14 06/17/21 Aspirin [Adult Low Dose Aspirin EC] 81 mg PO Q48H 10/27/18 06/17/21 Losartan Potassium 100 mg PO DAILY 10/27/18 06/17/21 metFORMIN HCL 500 mg PO BID 10/27/18 06/17/21 Insulin Lispro [humaLOG Kwikpen] 0 unit SQ DIRECTED 06/14/21 06/17/21 Previous Rx's Medication Instructions Recorded Rosuvastatin [Crestor] 20 mg PO DAILY #30 tablet 11/19/14 HYDROcodone/APAP 5-325MG [[place] 1 tab PO Q6HR PRN 3 Days #15 tab 06/17/21 5-325] Meclizine [Antivert] 25 mg PO TID PRN #15 tab 07/23/21 Allergies Allergy/AdvReac Type Severity Reaction Status Date / Time Penicillins Allergy Rash/Hives Verified 07/22/21 23:41 Review of Systems ROS Statement: Those systems with pertinent positive or pertinent negative responses have been documented in the HPI. ROS Other: All systems not noted in ROS Statement are negative. Past Medical History Past Medical History: Diabetes Mellitus, Hyperlipidemia Additional Past Medical History / Comment(s): STATES LOSARTAN TAKEN FOR KIDNEY PROTECTION History of Any Multi-Drug Resistant Organisms: None Reported Past Surgical History: Ear Surgery, Heart Catheterization Additional Past Surgical History / Comment(s): stress test Past Anesthesia/Blood Transfusion Reactions: No Reported Reaction Past Psychological History: No Psychological Hx Reported Smoking Status: Current every day smoker Past Alcohol Use History: Occasional Past Drug Use History: None Reported - Past Family History Sister(s) Family Medical History: Cancer Additional Family Medical History / Comment(s): BREAST CANCER. BRAIN TUMOR Father Family Medical History: Coronary Artery Disease (CAD), Dementia Mother Family Medical History: Coronary Artery Disease (CAD), Diabetes Mellitus General Exam Limitations: no limitations General appearance: alert, in no apparent distress Head exam: Present: atraumatic, normocephalic, normal inspection Eye exam: Present: normal appearance, PERRL, EOMI Pupils: Present: normal accommodation ENT exam: Present: normal exam, normal oropharynx, mucous membranes moist, TM's normal bilaterally, normal external ear exam Neck exam: Present: normal inspection, full ROM. Absent: tenderness, lymphadenopathy Respiratory exam: Present: normal lung sounds bilaterally. Absent: respiratory distress, wheezes, rales, rhonchi, stridor, chest wall tenderness, accessory muscle use Cardiovascular Exam: Present: regular rate, normal rhythm, normal heart sounds. Absent: systolic murmur, diastolic murmur GI/Abdominal exam: Present: soft. Absent: distended, guarding, rebound, rigid Extremities exam: Present: normal inspection, full ROM, normal capillary refill, other (Palpable DP and PT bilaterally) Back exam: Present: normal inspection, full ROM Neurological exam: Present: alert, oriented X3, CN II-XII intact, normal gait Expanded Patient oriented to: Present: person, place, time Speech: Present: fluid speech Cranial nerves: EOM's Intact: Normal, Gag Reflex: Normal, Tongue Deviation: Normal, Nystagmus: Normal, Facial Sensation: Normal Cerebellar function: Finger to Nose: Normal Upper motor neuron: Pronator Drift: Normal Sensory exam: Upper Extremity Light Touch: Normal, Lower Extremity Light Touch: Normal Motor strength exam: RUE: 5, LUE: 5, RLE: 5, LLE: 5 Psychiatric exam: Present: normal affect, normal mood Skin exam: Present: warm, dry, intact, normal color Course Vital Signs 07/22/21 07/23/21 07/23/21 23:35 00:33 02:50 Temperature 98.1 F Pulse Rate 65 59 L 54 L Respiratory 20 20 18 Rate Blood Pressure 190/68 171/75 145/61 O2 Sat by Pulse 100 98 99 Oximetry EKG Findings - EKG Comments: EKG Findings:: Sinus rhythm, inverted T-wave in lead 3. Ventricular rate 63, [place] 156, QRS 82, QTC 390. Medical Decision Making - Medical Decision Making 70-year-old male presents to emergency Department with chief complaint of dizziness. On physical examination, patient had a positive [place]-Hallpike. He did not have any focal neural deficits. No difficulty with speech or unilateral symptoms. CT of the brain shows no acute findings aside from cerebral atrophy. Laboratory work is unremarkable. Patient was given Antivert. He was then reevaluated and was able to walk without any difficulty. He reports significant proven in his gait. He did not report any weakness at this time. I did offer the option of observation to the hospital, he declined. Patient reports he would like to follow up with his primary care physician and outpatient basis. I will send Antivert to the pharmacy. Return parameters were discussed with gigi huff his attending and agreeable. Case discussed with physician. - Lab Data Result diagrams: 07/23/21 00:37 07/23/21 00:37 Lab Results 07/23/21 07/23/21 07/23/21 Range/Units 00:37 00:37 00:37 WBC 8.5 (3.8-10.6) k/uL RBC 4.39 (4.30-5.90) m/uL Hgb 13.5 (13.0-17.5) gm/dL Hct 41.1 (39.0-53.0) % MCV 93.5 (80.0-100.0) fL MCH 30.8 (25.0-35.0) pg MCHC 32.9 (31.0-37.0) g/dL RDW 13.1 (11.5-15.5) % Plt Count 124 L (150-450) k/uL MPV 12.1 Neutrophils % 62 % Lymphocytes % 28 % Monocytes % 5 % Eosinophils % 3 % Basophils % 0 % Neutrophils # 5.3 (1.3-7.7) k/uL Lymphocytes # 2.4 (1.0-4.8) k/uL Monocytes # 0.4 (0-1.0) k/uL Eosinophils # 0.2 (0-0.7) k/uL Basophils # 0.0 (0-0.2) k/uL Sodium 137 (137-145) mmol/L Potassium 4.0 (3.5-5.1) mmol/L Chloride 103 (98-107) mmol/L Carbon Dioxide 27 (22-30) mmol/L Anion Gap 7 mmol/L BUN 17 (9-20) mg/dL Creatinine 0.83 (0.66-1.25) mg/dL Est GFR (CKD-EPI)AfAm >90 (>60 ml/min/1.73 sqM) Est GFR (CKD-EPI)NonAf 88 (>60 ml/min/1.73 sqM) Glucose 174 H (74-99) mg/dL Calcium 9.4 (8.4-10.2) mg/dL Total Bilirubin 0.4 (0.2-1.3) mg/dL AST 22 (17-59) U/L ALT 22 (4-49) U/L Alkaline Phosphatase 63 (38-126) U/L Troponin I (0.000-0.034) ng/mL Total Protein 6.7 (6.3-8.2) g/dL Albumin 4.1 (3.5-5.0) g/dL Urine Color Light Yellow Urine Appearance Clear (Clear) Urine pH 6.5 (5.0-8.0) Ur Specific [place] 1.014 (1.001-1.035) Urine Protein Negative (Negative) Urine Glucose (UA) Negative (Negative) Urine Ketones Negative (Negative) Urine Blood Negative (Negative) Urine Nitrite Negative (Negative) Urine Bilirubin Negative (Negative) Urine Urobilinogen <2.0 (<2.0) mg/dL Ur Leukocyte Esterase Negative (Negative) 07/23/21 Range/Units 00:37 WBC (3.8-10.6) k/uL RBC (4.30-5.90) m/uL Hgb (13.0-17.5) gm/dL Hct (39.0-53.0) % MCV (80.0-100.0) fL MCH (25.0-35.0) pg MCHC (31.0-37.0) g/dL RDW (11.5-15.5) % Plt Count (150-450) k/uL MPV Neutrophils % % Lymphocytes % % Monocytes % % Eosinophils % % Basophils % % Neutrophils # (1.3-7.7) k/uL Lymphocytes # (1.0-4.8) k/uL Monocytes # (0-1.0) k/uL Eosinophils # (0-0.7) k/uL Basophils # (0-0.2) k/uL Sodium (137-145) mmol/L Potassium (3.5-5.1) mmol/L Chloride (98-107) mmol/L Carbon Dioxide (22-30) mmol/L Anion Gap mmol/L BUN (9-20) mg/dL Creatinine (0.66-1.25) mg/dL Est GFR (CKD-EPI)AfAm (>60 ml/min/1.73 sqM) Est GFR (CKD-EPI)NonAf (>60 ml/min/1.73 sqM) Glucose (74-99) mg/dL Calcium (8.4-10.2) mg/dL Total Bilirubin (0.2-1.3) mg/dL AST (17-59) U/L ALT (4-49) U/L Alkaline Phosphatase (38-126) U/L Troponin I <0.012 (0.000-0.034) ng/mL Total Protein (6.3-8.2) g/dL Albumin (3.5-5.0) g/dL Urine Color Urine Appearance (Clear) Urine pH (5.0-8.0) Ur Specific [place] (1.001-1.035) Urine Protein (Negative) Urine Glucose (UA) (Negative) Urine Ketones (Negative) Urine Blood (Negative) Urine Nitrite (Negative) Urine Bilirubin (Negative) Urine Urobilinogen (<2.0) mg/dL Ur Leukocyte Esterase (Negative) Disposition Clinical Impression: Dizziness Disposition: HOME SELF-CARE Condition: Stable Instructions (If sedation given, give patient instructions): Dizziness (ED) Additional Instructions: Please return to the Emergency Department if symptoms worsen or any other concerns. Prescriptions: Meclizine [Antivert] 25 mg PO TID PRN #15 tab PRN Reason: Vertigo Is patient prescribed a controlled substance at d/c from ED?: No Referrals: Elliott Mcdaniels MD [Primary Care Provider] - 1-2 days Time of Disposition: 02:35
--- NOTE | 2021-07-23 01:50 | CT ---
EXAMINATION TYPE: CT brain wo con DATE OF EXAM: 07/23/2021 COMPARISON: None HISTORY: DIZZY CT DLP: 1178.4 mGycm Automated exposure control for dose reduction was used. There is some cerebral cortical atrophy. There is no mass effect nor midline shift. There is no sign of intracranial hemorrhage. Calvarium is intact. Skull base is intact. There is incomplete pneumatiza tion of the right mastoid sinus. There is previous surgery right mastoid sinus. IMPRESSION: Cerebral atrophy. No acute intracranial abnormality.
[2021-07-23 02:56] VITALS: BP 145/61; PULSE 54; RESP 18
== END 2021-07-23 02:56 | disposition home or self-care (01) ==
LOC: EC 23:32
DX: R42 Dizziness and giddiness (principal); E11.9 Type 2 diabetes mellitus without complications; E78.5 Hyperlipidemia, unspecified; F17.200 Nicotine dependence, unspecified, uncomplicated; Z79.4 Long term (current) use of insulin; Z79.82 Long term (current) use of aspirin; Z88.0 Allergy status to penicillin
CPT/HCPCS: 36415; 70450; 80053; 81003; 84484; 85025; 93005; 99285

== ENCOUNTER → 2022-01-20 | Outpatient (CLI) | payer MEDICARE, BC ==
--- NOTE | 2022-01-20 11:10 | US ---
EXAMINATION TYPE: US kidneys/renal and bladder DATE OF EXAM: 01/20/2022 COMPARISON: CLINICAL HISTORY: R31.9 HEMATURIA, UNSPECIFIED. Macroscopic hematuria EXAM MEASUREMENTS: Right Kidney: 10.6 x 4.3 x 5.1 cm Left Kidney: 11.4 x 4.9 x 5.7 cm Limited due to overlying bowel gas Right Kidney: No hydronephrosis or masses seen Left Kidney: Limited visualization. Upper pole simple cystic lesion = 5.8 x 4.3 x 6.1 cm . Echogenic foci measuring 0.8 cm within the mid left kidney could be a nonshadowing nonobstructing gee al stone Bladder: mildly distended, anechoic Bilateral Jets not seen IMPRESSION: 1. Superior pole left renal cyst. 2. There may be a nonobstructing nonshadowing renal stone in the mid left kidney
== END | disposition home or self-care (01) ==
LOC: RADUSWWP 08:49
PROVIDERS: ATTEND Internal Medicine
DX: N28.1 Cyst of kidney, acquired (principal)
CPT/HCPCS: 76770

== ENCOUNTER → 2022-02-10 | Outpatient (CLI) | payer MEDICARE, BC ==
--- NOTE | 2022-02-11 06:13 | XR ---
EXAMINATION TYPE: XR chest 2V DATE OF EXAM: 02/10/2022 COMPARISON: 02/05/2018 HISTORY: 71-year-old male R05.9 TECHNIQUE: Frontal and lateral views FINDINGS: Heart upper limits of normal in size. Aorta and pulmonary vasculature within normal limits. Mild inte rstitial prominence is a chronic appearance. Mild hyperinflation may relate to depth of inspiration. Stable 6 mm nodular density particularly at the right apex could represent a bone island of the right posterior third rib versus a calcified granuloma, unchanged from prior. No consolidation or pleural effusion. [facility] in the mid thoracic spine. IMPRESSION: Hyperinflation may relate to depth of inspiration or underlying emphysema. There are chronic changes without acute cardiopulmonary process.
== END | disposition home or self-care (01) ==
LOC: RADXRMAIN 12:11
PROVIDERS: ATTEND Internal Medicine
DX: J98.4 Other disorders of lung (principal)
CPT/HCPCS: 71046

== ENCOUNTER → 2022-06-07 | Outpatient (CLI) | payer MEDICARE, BC ==
--- NOTE | 2022-06-07 14:07 | MR ---
EXAMINATION TYPE: MR knee LT wo con DATE OF EXAM: 06/07/2022 COMPARISON: 09/19/2017 HISTORY: Pain in left knee TECHNIQUE: Multiplanar, multisequence imaging of the left knee is performed without IV contrast. FINDINGS: MEDIAL MENISCUS: Anterior and posterior horns are intact without tear. LATERAL MENISCUS: Anterior and posterior horns are intact without tear. Degeneration posterior horn lateral meniscus. CRUCIATE LIGAMENTS: The anterior and posterior cruciate ligaments are intact and unremarkable. COLLATERAL LIGAMENTS: The medial collateral ligament and lateral collateral ligament complex are inta ct and unremarkable. EXTENSOR MECHANISM: Visualized quadriceps and patellar tendons are intact. EFFUSION: Joint effusion smaller in size and is less complex than on prior examination. POPLITEAL CYST: No popliteal/wood cyst. TRICOMPARTMENT SPACES: Narrowing of the patellofemoral joint space with early changes of chondromalac ia patella. CARTILAGE: There is cartilaginous thinning along the anterior femoral condyles. Subchondral increased signal anterior femoral intercondylar region. BONE MARROW SIGNAL: No focal abnormal marrow signal is appreciated. OTHER: Posterior to Hoffa's fat pad are multiple low signal T1 and T2 weighted foci are noted. The l argest more complex appearing lesion seen previously is not evident at this time. Consider synovial o steochondromatosis or pigmented villous nodular synovitis. IMPRESSION: 1.Posterior to Hoffa's fat pad are multiple low signal T1 and T2 weighted foci are noted. The largest more complex appearing lesion seen previously is not evident at this time. Consider synovial osteoch ondromatosis or pigmented villous nodular synovitis. 2. Changes of osteoarthritis.
== END | disposition home or self-care (01) ==
LOC: RADMRIMAIN 10:46
PROVIDERS: ATTEND Orthopaedic Surgery
DX: M17.12 Unilateral primary osteoarthritis, left knee (principal)

== ENCOUNTER 2022-07-28 14:25 | Day surgery (SDC) | payer MEDICARE, BC ==
--- NOTE | 2022-07-28 05:09 | HP ---
HISTORY AND PHYSICAL DATE OF SURGERY: 07/28/2022. Miah Alcala is a 71-year-old patient seen with progressive left knee pain. We discussed options for treatment. He elected to proceed with left knee arthroscopy. Consent was obtained. Medical clearance was provided by Dr. Singh. PAST MEDICAL HISTORY: Hypertension, hyperlipidemia, lyf-ywoofak-wpditetop diabetes. PAST SURGICAL HISTORY: Shoulder arthroscopy, knee arthroscopy. DAILY MEDICATIONS: 1. Glipizide. 2. Losartan. 3. Metformin. 4. Rosuvastatin. ALLERGIES: Penicillin. SOCIAL HISTORY: Denies current tobacco use. PHYSICAL EVALUATION OF THE LEFT KNEE: Range of motion is 0 to 130. Mild effusion. Tenderness, medial and lateral joint lines. Positive medial Edmund's. Ligaments stable. Hip rotation without pain. Distal neurovascular exam is intact. RADIOGRAPHS: Radiographs of the left knee revealed moderate osteoarthritic changes. MRI of left knee revealed degeneration in lateral meniscus. IMPRESSION: 1. Internal derangement of left knee with lateral meniscal tear and synovitis. 2. Hypertension. 3. Hyperlipidemia. 4. Drc-xxicsto-ujazatgzb diabetes. PLAN: Left knee arthroscopy with partial lateral meniscectomy and debridement. MMODL / IJN: [id number] /
[~2022-07-28 14:25] MED LIST changes: +HYDROmorphone 0.5 MG/0.5 ML SYRINGE IVP PRN; +LIDOCAINE 1% (10MG/ML) FOR IV START INTRADERMA PRN; -MIDAZOLAM 2 MG/2 ML VIAL IV PRN; +ONDANSETRON 4 MG/2 ML VIAL IVP PRN
[2022-07-28 15:23] VITALS: RESP 16
[2022-07-28 15:33] LABS: Glucose,Whole Blood 73 mg/dL (70-110)
[2022-07-28] MEDS ORDERED: DEXTROSE 50% SYRINGE 50 ML IVP ONE (15:45)
[2022-07-28 16:26] LABS: Glucose,Whole Blood 109 mg/dL (70-110)
[2022-07-28] MEDS ORDERED: PROPOFOL 10 MG/ML 20 ML VIAL IV ONE (16:31)
[2022-07-28] MEDS ORDERED: fentaNYL (PF) 50 MCG/ML 2 ML AMP ONE (16:31)
[2022-07-28] MEDS ORDERED: KETOROLAC 15 MG/ML 1 ML VIAL ONE (16:31)
[2022-07-28] MEDS ORDERED: MIDAZOLAM 2 MG/2 ML VIAL ONE (16:31)
[2022-07-28] MEDS ORDERED: LIDOCAINE 2% INJ 20 MG/ML (2 ML VIAL) ONE (16:31)
[2022-07-28] MEDS ORDERED: BUPIVACAINE (PF) 0.25% 30 ML VIAL INTRAARTIC ONE (16:56)
--- NOTE | 2022-07-28 17:15 | P.OP ---
Date of Procedure: 07/28/22 Preoperative Diagnosis: Internal derangement left knee Postoperative Diagnosis: 1. Tear medial and lateral meniscus left knee 2. Grade 2/3 chondromalacia patella left knee 3. Reactive synovitis medial, lateral and suprapatellar compartments left knee Procedure(s) Performed: 1. Arthroscopic partial medial and lateral meniscectomy left knee 2. Arthroscopic chondroplasty patella left knee 3. Arthroscopic partial synovectomy medial, lateral and suprapatellar compartments left knee Anesthesia: SASKIAA, local Surgeon: Miguel Dietz Estimated Blood Loss (ml): 5 Pathology: none sent Condition: stable Disposition: PACU Indications for Procedure: 71-year-old patient seen with progressive left knee pain. After treatment options were discussed, he elected to proceed with arthroscopy. Operative Findings: see description of procedure Description of Procedure: Patient was taken to the operative suite. Patient underwent a general anesthetic by the department of anesthesia. Patient was given preoperative antibiotics. The left lower extremity was placed in a well-padded arthroscopic leg banks. The left leg was prepped and draped in the normal sterile orthopedic fashion. A lateral parapatellar and suprapatellar incision was made. Trochars were inserted. Arthroscopy was initiated. Suprapatellar pouch revealed diffuse thick reactive synovitis. The patellofemoral joint appeared to articulate congruently. There there was grade 2/3 chondromalacia of the patella with some diffuse osteochondral flap tears present. The scope was guided into the medial gutter. No loose bodies or plica were identified. The scope was then guided into the medial compartment. A medial parapatellar incision was made. Trocar inserted followed by probe. There was a radial tear posterior horn medial meniscus. There were grade 2 chondromalacia changes medial compartment with no tears. There was some thick reactive synovitis anteriorly. I performed a partial medial meniscectomy getting down to stable meniscal tissue. I performed a partial synovectomy. The residual meniscus was stable. There was good decompression of the synovitis. Scope and probe were then guided into the intercondylar notch. Cruciates were identified, probed and found to be stable. The scope and probe were then guided into lateral compartment. There was a radial tear involving the posterior horn of lateral meniscus. There were grade 1 chondromalacia changes of the lateral compartment. There was some thick reactive synovitis anteriorly. I performed a partial lateral meniscectomy. I performed a partial synovectomy. The residual meniscus was probed and was found to be stable. There was good decompression of the synovitis. The scope was in guided back into the suprapatellar compartment. I introduced a motorized shaver into the super patellar compartment. I debrided some piecemeal fragments of meniscus that I encountered. I performed a chondroplasty of the patella getting down to stable osteochondral tissue. I performed a partial synovectomy. The residual meniscus was probed and was found to be stable. There was good decompression of the synovitis. I now took one more look around the entire knee, no residual debris. Instruments were now removed from the joint. The joint was infiltrated with .25% Marcaine. Steri-Strips were applied to the portal sites. Sterile dressings were applied. The patient was placed into a SONIA hose. No tourniquet was utilized. The patient was awakened, transferred to a bed and taken to recovery stable satisfactory condition.
[2022-07-28 17:16] LABS: Glucose,Whole Blood 89 mg/dL (70-110)
[2022-07-28 17:20] VITALS: TEMP 97.1
[2022-07-28] MEDS ORDERED: HYDROcodone/APAP 5-325MG 1 EACH TAB ONE (17:59)
[2022-07-28 18:28] VITALS: BP 169/72; PULSE 65
== END 2022-07-28 18:40 | disposition home or self-care (01) ==
LOC: OR 14:25
PROVIDERS: ATTEND Orthopaedic Surgery
DX: M23.201 Derangement of unspecified lateral meniscus due to old tear or injury, left knee (principal); M23.204 Derangement of unspecified medial meniscus due to old tear or injury, left knee; M22.42 Chondromalacia patellae, left knee; M65.862 Other synovitis and tenosynovitis, left lower leg; E11.319 Type 2 diabetes mellitus with unspecified diabetic retinopathy without macular edema; I25.10 Atherosclerotic heart disease of native coronary artery without angina pectoris; I10 Essential (primary) hypertension; F17.200 Nicotine dependence, unspecified, uncomplicated; E55.9 Vitamin D deficiency, unspecified; K21.9 Gastro-esophageal reflux disease without esophagitis; E78.5 Hyperlipidemia, unspecified; N52.9 Male erectile dysfunction, unspecified; F32.A Depression, unspecified; Z79.84 Long term (current) use of oral hypoglycemic drugs; Z79.82 Long term (current) use of aspirin; Z79.4 Long term (current) use of insulin; Z79.899 Other long term (current) drug therapy; Z88.0 Allergy status to penicillin
CPT/HCPCS: 29880; J2250; J1100; J2405; J3010; J1885; J2704; J2001

== ENCOUNTER → 2022-10-17 | Outpatient (CLI) | payer MEDICARE, BC ==
--- NOTE | 2022-10-17 22:35 | MR ---
EXAMINATION TYPE: MR brain and iac wo/w con DATE OF EXAM: 10/17/2022 COMPARISON: CT brain July 23, 2021 HISTORY: Loss of balance, dizziness. History of prior right ear surgery. TECHNIQUE: Multiplanar, multisequence images of the brain and brainstem along with internal auditory canals are all performed without and with IV contrast, utilizing 7.5 mL intravenous Gadavist . FINDINGS: Diffusion weighted images demonstrate no evidence of a recent infarct or other diffusion ab normality. There is mild ventricular and sulcal prominence. Scattered tiny foci of T2 hyperintensity are seen throughout the white matter bilaterally. There is involvement of the superficial, deep, and periventricular white matter. Lesions are nonspecific in appearance and distribution. T2 Star weight ed images show some scattered foci of old blood product or hemorrhage to the right temporal lobe and the bilateral occipital lobes. Midline structures demonstrate normal morphology. The craniocervical junction appears within normal limits. Post contrast images demonstrate no abnormal enhancement. The dural venous sinuses appear pa tent. The visualized sinuses are clear and the globes are intact. Evidence of prior right mastoid surgery with new fluid signal involving the remnant surrounding masto id air cells. The vestibulocochlear complexes are symmetric and felt within normal limits. There is n o abnormal enhancing cerebellopontine angle mass identified bilaterally. IMPRESSION: New fluid signal in the remnant right-sided mastoid air cells raises concern for recurren t mastoiditis. 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
== END | disposition home or self-care (01) ==
LOC: RADMRIMAIN 20:30
PROVIDERS: ATTEND Otolaryngology Otology & Neurotology
DX: D49.6 Neoplasm of unspecified behavior of brain (principal); H92.11 Otorrhea, right ear; Z86.69 Personal history of other diseases of the nervous system and sense organs
CPT/HCPCS: 70553; A9585

== ENCOUNTER → 2024-03-04 | Outpatient (CLI) | payer MEDICARE, BC ==
--- NOTE | 2024-03-04 12:46 | CTL ---
EXAMINATION TYPE: CT Low Dose Lung DATE OF EXAM: 03/04/2024 12:32 PM CLINICAL INDICATION:Male, 73 years old with history of Z12.2 ENCNTR SCREEN FOR MALIGNANT NEOPLASM OF RESP; personal hx of tobacco use. 1 pack/ day x 30 years. current smoker. , history of tobacco use. COMPARISON: 11/19/2014 TECHNIQUE: Multiple axial non-contrast scans were obtained from approximately the lung apices through the upper abdomen. Coronal and sagittal reformatted images were obtained. Low dose technique was uti lized. CT DLP: 59.63 mGycm, Automated exposure control for dose reduction was used. CT Contrast: Contrast used: None Oral contrast used: None FINDINGS: ======== Lack of intravenous contrast and low dose technique limits the evaluation of the vascular and soft ti ssue structures. LUNGS: No evidence of pulmonary fibrosis. No evidence of focal consolidation, pneumothorax or pleural effusion. Mild centrilobular emphysema changes throughout the lungs. Nodules: RUL: None. RML: None. RLL: Intrafissural lymph node series 9 image 35 RICKEY: None. LLL: None. AIRWAY: Patent and unremarkable. HEART: Size within normal limits. Mild atherosclerotic locations of the coronary artery. MEDIASTINUM: No gross evidence of adenopathy. VASCULATURE: No aortic aneurysm. MUSCULOSKELETAL: No acute osseous abnormalities SOFT TISSUES/LYMPH NODES: Unremarkable. LOWER NECK: No significant findings. UPPER ABDOMEN: Large left renal cyst. IMPRESSION: 1. No clinically significant pulmonary nodules. 2. Mild emphysema. CT LUNG RAD AND CT CHEST RECOMMENDATION: Lung-Rad 2 Benign Appearance or Behavior: Continue annual sc reening with LDCT in 12 months. S Modifier (other clinically significant findings): None Recommend smoking cessation (if current smoker), or continuation of smoking cessation (if prior smoke r). Annual screening for lung cancer with low-dose computed tomography is recommended in adults ages 55 to 77 years who have a 30 pack-year smoking history and currently smoke or have quit within the pa st 15 years. Screening should be discontinued once a person has not smoked for 15 years or develops a health problem that substantially limits life expectancy or the ability or willingness to have curat moni lung surgery. Lung rads 2021 [email or web address]
== END | disposition home or self-care (01) ==
LOC: RADCTMAIN 11:43
PROVIDERS: ATTEND Internal Medicine
DX: Z12.2 Encounter for screening for malignant neoplasm of respiratory organs (principal); J43.2 Centrilobular emphysema; F17.210 Nicotine dependence, cigarettes, uncomplicated
CPT/HCPCS: 71271

== ENCOUNTER 2024-04-23 06:23 | Day surgery (SDC) | payer MEDICARE, BC ==
[~2024-04-23 06:23] MED LIST changes: -DEXAMETHASONE SOD PHOSPHATE 4 MG/ML 1 ML VIAL IV ONE; -HYDROmorphone 0.5 MG/0.5 ML SYRINGE IVP PRN; -LACTATED RINGERS 1,000 ML IV SCH; -ONDANSETRON 4 MG/2 ML VIAL IVP ONE; -ONDANSETRON 4 MG/2 ML VIAL IVP PRN
[2024-04-23 06:52] VITALS: TEMP 97
[2024-04-23] MEDS: LACTATED RINGERS 1,000 ML IV SCH (07:04)
[2024-04-23] MEDS: IV FLUID CONTINUATION 1,000 ML IV ONE (07:04)
[2024-04-23 07:07] LABS: Glucose,Whole Blood 89 mg/dL (70-110)
[2024-04-23] MEDS ORDERED: PROPOFOL 10 MG/ML 20 ML VIAL IV ONE (07:24)
[2024-04-23 07:30] LABS: Glucose,Whole Blood 91 mg/dL (70-110)
--- NOTE | 2024-04-23 07:43 | P.PCN ---
Date of Procedure: 04/23/24 Procedure(s) Performed: BRIEF HISTORY: Patient is a 73-year-old pleasant white male scheduled for an elective colonoscopy as a part of screening for colon cancer/history of colon polyps. PROCEDURE PERFORMED: Colonoscopy. PREOPERATIVE DIAGNOSIS: Screening for colon cancer/history of colon polyps. IV sedation per Anesthesia. PROCEDURE: After informed consent was obtained, the patient, was brought into the endoscopy unit. IV sedation was administered by Anesthesia under continuous monitoring. Digital rectal examination was normal. Initially the Olympus CF-160 flexible video colonoscope was then inserted in the rectum, gradually advanced into the cecum without any difficulty. Careful examination was performed as the scope was gradually being withdrawn. Ileocecal valve and the appendiceal orifice were visualized and appeared normal. Prep was excellent. Mucosa of the cecum, ascending colon, transverse colon, descending colon, sigmoid colon, and rectum appeared normal. Scattered sigmoid diverticulosis retroflexion was performed in the rectum and grade 2 internal hemorrhoids were seen. The patient tolerated the procedure well. IMPRESSION: Normal-appearing colon from rectum to cecum no evidence of colorectal neoplasia. Scattered sigmoid diverticulosis. RECOMMENDATIONS: Findings of this examination were discussed with the patient as well as his family. He was advised to be on a high-fiber diet and take fiber supplements on a regular basis and recommended repeat colonoscopy in 10 years.
[2024-04-23 07:49] VITALS: RESP 16
[2024-04-23 08:00] VITALS: BP 148/74; PULSE 57
[2024-04-23 08:21] LABS: Glucose,Whole Blood 103 mg/dL (70-110)
== END 2024-04-23 08:15 | disposition home or self-care (01) ==
LOC: ORWHC2ENDO 06:23
PROVIDERS: ATTEND Internal Medicine Gastroenterology
DX: Z12.11 Encounter for screening for malignant neoplasm of colon (principal); K57.30 Diverticulosis of large intestine without perforation or abscess without bleeding; K64.1 Second degree hemorrhoids; Z86.010 Personal history of colon polyps; E11.69 Type 2 diabetes mellitus with other specified complication; E78.5 Hyperlipidemia, unspecified; F17.200 Nicotine dependence, unspecified, uncomplicated; Z88.0 Allergy status to penicillin; Z79.82 Long term (current) use of aspirin; Z79.4 Long term (current) use of insulin; Z79.84 Long term (current) use of oral hypoglycemic drugs; Z79.899 Other long term (current) drug therapy
CPT/HCPCS: J2704; G0105

== ENCOUNTER 2024-08-14 07:02 | Day surgery (SDC) | payer MEDICARE, BC ==
[2024-08-09 15:23] VITALS: BMI 26.4
--- NOTE | 2024-08-13 11:18 | P.GSHP ---
History of Present Illness H&P Date: 08/13/24 3-year-old gentleman with a bulbar urethral stricture who comes for a direct vision internal urethrotomy. He had a TURP years ago and the instrumentation probably led to the stricturing. He comes for this above-mentioned procedure. Alternatives have been discussed. Risks and complications have been discussed. - Constitutional Constitutional: Denies chills, Denies fever - EENT Eyes: denies blurred vision, denies pain Ears, nose, mouth and throat: Denies headache, Denies sore throat - Cardiovascular Cardiovascular: Denies chest pain, Denies shortness of breath - Respiratory Respiratory: Denies cough, Denies 7 - Gastrointestinal Gastrointestinal: Denies abdominal pain, Denies diarrhea, Denies nausea, Denies vomiting - Genitourinary (Female) Genitourinary: Denies dysuria, Denies hematuria - Genitourinary (Male) Genitourinary: Denies dysuria, Denies hematuria - Musculoskeletal Musculoskeletal: Denies myalgias - Integumentary Integumentary: Denies pruritus, Denies rash - Neurological Neurological: Denies numbness, Denies weakness - Psychiatric Psychiatric: Denies anxiety, Denies depression - Endocrine Endocrine: Denies fatigue, Denies weight change Past Medical History Past Medical History: Diabetes Mellitus, Hyperlipidemia Additional Past Medical History / Comment(s): Scar tissue urethral, cataracts History of Any Multi-Drug Resistant Organisms: None Reported Past Surgical History: Ear Surgery, Heart Catheterization, Orthopedic Surgery Additional Past Surgical History / Comment(s): stress test, left shoulder rotator cuff, right knee arthroscopy, left knee arthroscopy, last colonoscopy 2018, cataract surgery Past Anesthesia/Blood Transfusion Reactions: No Reported Reaction Smoking Status: Current every day smoker - Past Family History Sister(s) Family Medical History: Cancer Additional Family Medical History / Comment(s): BREAST CANCER. BRAIN TUMOR Father Family Medical History: Coronary Artery Disease (CAD), Dementia Mother Family Medical History: Coronary Artery Disease (CAD), Diabetes Mellitus Medications and Allergies Home Medications Medication Instructions Recorded Confirmed Type Aspirin [Adult Low Dose Aspirin EC] 81 mg PO Q48H 10/27/18 08/09/24 History Insulin NPL/Insulin Lispro 24 unit SQ HS 07/26/22 08/09/24 History [humaLOG MIX 75-25 VIAL] Rosuvastatin [Crestor] 20 mg PO HS 06/20/24 10/11/24 History Donepezil [Aricept] 5 mg PO HS 08/09/24 08/09/24 History Insulin Lispro [humaLOG Kwikpen] 3 units SQ AC-TID 08/09/24 08/09/24 History Ipratropium [place] 0.06%Nasal 2 spray EA NOSTRIL BID 08/09/24 08/09/24 History [Atrovent Nasal 0.06%] Semaglutide [Ozempic] 5 mg SQ WE 08/09/24 08/09/24 History Tamsulosin [Flomax] 0.4 mg PO HS 08/09/24 08/09/24 History hydroCHLOROthiazide [Hydrodiuril] 25 mg PO DAILY 08/09/24 08/09/24 History Allergies Allergy/AdvReac Type Severity Reaction Status Date / Time Penicillins Allergy Rash/Hives Verified 08/09/24 14:50 Surgical - Exam - General well developed, well nourished, no distress - Eyes normal ocular movement, no icteric - ENT no hearing loss, no congestion - Neck no masses, trachea midline - Respiratory normal respiratory effort, clear to auscultation - Abdomen Abdomen: soft, non tender, no guarding, no rigid, no rebound - Integumentary no rash, no abnormal pigmentation - Neurologic no disoriented, no combative - Psychiatric oriented to time, oriented to person, oriented to place, speech is normal, memory intact Assessment and Plan Assessment: Impression: Urethral stricture. Recommendations: Direct vision internal ureterotomy
[~2024-08-14 07:02] MED LIST changes: +HYDROmorphone 0.5 MG/0.5 ML SYRINGE IVP PRN; +Pre Op ABX Message 1 EACH MISC MISCELLANE ONE
[2024-08-14] MEDS: IV FLUID CONTINUATION 1,000 ML IV ONE (07:34)
[2024-08-14 07:48] VITALS: RESP 16
[2024-08-14 08:00] LABS: Glucose,Whole Blood 180 mg/dL (70-110)
[2024-08-14] MEDS: ONDANSETRON 4 MG/2 ML VIAL IVP ONE (08:04)
[2024-08-14] MEDS: LACTATED RINGERS 1,000 ML IV SCH (08:04)
[2024-08-14] MEDS: DEXAMETHASONE SOD PHOSPHATE 4 MG/ML 1 ML VIAL IVP STA (08:05)
[2024-08-14] MEDS ORDERED: fentaNYL (PF) 50 MCG/ML 2 ML AMP ONE (08:08)
[2024-08-14] MEDS ORDERED: LIDOCAINE 1% INJ 10MG/ML (20 ML MDV) ONE (08:08)
[2024-08-14] MEDS ORDERED: MIDAZOLAM 2 MG/2 ML VIAL ONE (08:08)
[2024-08-14] MEDS ORDERED: PROPOFOL 10 MG/ML 20 ML VIAL IV ONE (08:08)
[2024-08-14] MEDS: GENTAMICIN 100 MG in SODIUM CHLORIDE 0.9% 100 ML IVPB PRN (08:13)
--- NOTE | 2024-08-14 08:48 | P.OP ---
Date of Procedure: 08/14/24 Preoperative Diagnosis: bulbar urethral stricture Postoperative Diagnosis: same Procedure(s) Performed: cystoscopy with direct vision internal ureterotomy Anesthesia: KIRAN Surgeon: Bk Burt Estimated Blood Loss (ml): 0 Pathology: none sent Condition: stable Disposition: PACU Indications for Procedure: the patient is 73. He has a history of urethral stricture. His symptoms have returned. He comes for direct vision internal ureterotomy Description of Procedure: patient brought to the operating suite. Given a general anesthetic. Placed lithotomy position with a sterile prep and drape. Under direct vision the direct vision internal urethrotomy scope and sheath is introduced in the urethra. The anterior urethra is normal until the mid bulbar there is a stricture identified. There is one proximal in the membranous urethra. Both these are cut with the direct vision urethrotome at 12:00 and it opens up the urethra nicely. I cut back to healthy tissue. The prostate shows previous TURP. The bladder hoskins unremarkable. Upon pullout of the scope I see no active bleeding. The stricture is been opened nicely. I removed the cystoscope. I then placed an 18-Libyan Edwards catheter with clear urine return. The patient is awakened and returned recovery in good condition. He'll be discharged home upon recovery and found the office postoperatively.
[2024-08-14 08:53] VITALS: TEMP 97
[2024-08-14 09:43] VITALS: BP 153/69; PULSE 54
== END 2024-08-14 10:07 | disposition home or self-care (01) ==
LOC: OR 07:02
PROVIDERS: ATTEND Urology

== ENCOUNTER → 2025-03-05 | Outpatient (CLI) | payer MEDICARE ==
--- NOTE | 2025-03-05 08:02 | CTL ---
EXAMINATION TYPE: CT Low Dose Lung DATE OF EXAM ORDERED: 03/05/2025 COMPARISON: Prior CT March 04, 2024 and older studies CLINICAL INDICATION: Male, 74 years old with history of Z12.2 screening for lung ca; PHH, current smo ker, 1 pack a day for 30 years, Lung cancer screening, History of Smoking/tobacco use. TECHNIQUE: Low dose computed tomography scan was performed through the chest at 1 mm thick sections a nd reconstructed images in multiple planes at 1 mm and [address] DLP: [address] CTDI: 2.2 mGy Automated exposure control for dose reduction was used. CT DIAGNOSTIC QUALITY: Satisfactory FINDINGS: Nodules: No new or enlarging greater than 4 mm pulmonary nodules LUNGS: COPD: Severity: Mild Fibrosis: Severity: None Lymph nodes: None Other findings: None RIGHT PLEURAL SPACE: Effusion: None Calcification: None Thickening: None Pneumothorax: None LEFT PLEURAL SPACE: Effusion: None Calcification: None Thickening: None Pneumothorax: None HEART: Heart Size: Mildly Enlarged Coronary Calcification: Moderate Pericardial Effusion: None OTHER FINDINGS: Upper abdomen: None Bony thorax: Degenerative spurring Supraclavicular region: None Other: None IMPRESSION: No new or enlarging greater than [address] LUNG RAD AND CT CHEST RECOMMENDATION: Lung-Rad 1 Negative: Continue annual screening with LDCT in 12 months. S Modifier (other clinically significant findings): None [facility], , 03/05/2025 8:00 AM
== END | disposition home or self-care (01) ==
LOC: RADCTMAIN 06:46
PROVIDERS: ATTEND Internal Medicine
DX: Z12.2 Encounter for screening for malignant neoplasm of respiratory organs (principal); F17.210 Nicotine dependence, cigarettes, uncomplicated
CPT/HCPCS: 71271